=== PATIENT | female | born 1940 | race Caucasian/White ===

== ENCOUNTER 2020-05-25 12:29 | Outpatient (CLI) | payer OTHER ==
[2020-05-26 02:35] LABS: SARS-CoV-2 PCR by NAA Not Detected (NotDetected)
== END 2020-05-25 12:30 | disposition home or self-care (01) ==
LOC: CSHLAB 12:29
PROVIDERS: ATTEND Internal Medicine Gastroenterology
DX: Z20.822 Contact with and (suspected) exposure to COVID-19 (principal); R19.5 Other fecal abnormalities
CPT/HCPCS: 87635; U0003; U0005